=== PATIENT | female | born 1975 | race Caucasian/White ===

== ENCOUNTER → 2016-11-05 | Day surgery (SDC) | payer OTHER ==
[~2016-11-05] VITALS: Ht 172.7 cm; Wt 68.9 kg
--- NOTE | 2016-11-05 13:40 | Operative Report ---
Operative/Inv Procedure Report Surgery Date: 11/05/16 Name of Procedure: Bilateral breast augmentation Pre-Operative Diagnosis: Breast involution hyperplasia Post-Operative Diagnosis: same Estimated Blood Loss: scant Surgeon/Pens And Penc[employer] Repairer: CARLOS CANCINO MD Anesthesia: general endotracheal tube Operative/Procedure Note Note: The patient was counseled extensively regards to her request for surgical intervention to treat loss of breast volume and some ptosis. We discussed the procedure the alternatives the risks and the expected outcomes as relates to her choice of surgery. The patient has chosen the subglandular position smoothed coming back implants 310 mL through an inframammary incision. Assess with the patient and this is what she chose. He was given and a SPS informed consent which she has returned sign and has no additional questions regarding today. She was marked in the standing position. Her to the operating room placed supine on the table. Venodyne boots are placed and then general anesthesia was established intravenous antibiotics were given and the chest was prepped and draped in usual sterile fashion. Based on the nipple areolar complexes were aligned with Ioban draping. Inframammary incision was placed 5 cm. It was deepened and the subglandular space was opened. His are weak. Hemostasis was maintained with electrocautery. Irrigated with triple antibiotic and Betadine solution. Change was before performed and a 310 mL patient choice implant was used with a Sheila funnel after a bath in triple antibiotics and Betadine. Injected in the superficial surfaces prior to placing the implant. 3 layer closure was carried out of the incision. Similar procedure done on the opposite side. Steri-Strips applied to the skin.
== END ==
LOC: STS 01:15
DX: Z41.1 Encounter for cosmetic surgery (principal); N64.81 Ptosis of breast
CPT/HCPCS: 81025; J0131; J0690; J1580; J2250